=== PATIENT | female | born 1985 | race Caucasian/White ===

== ENCOUNTER 2017-07-21 11:53 | Day surgery (SDC) | payer OTHER ==
[~2017-07-21] VITALS: Ht 160 cm; Wt 103.4 kg
[~2017-07-21 11:53] MED LIST: OMEP40CA2 PO
[2017-07-21] MEDS ORDERED: NS 1,000 ML IV ONE (12:00)
[2017-07-21] MEDS ORDERED: PROPOFOL 200 MG/20 ML VIAL As Ordered ONE (14:12)
--- NOTE | 2017-07-21 14:23 | ROOR ---
Patient Name: Naida Medina Procedure Date: 07/21/2017 2:12 PM Date of : 1985 Age: 31 Room: [facility] Gender: Female Note Status: Finalized Procedure: Upper GI endoscopy Indications: Heartburn, Abnormal UGI series Providers: Robin RUBALCAVA MD Referring MD: KEYANNA VALENCIA Requesting Provider: Medicines: Monitored Anesthesia Care Complications: No immediate complications. Procedure: Pre-Anesthesia Assessment: - The heart rate, respiratory rate, oxygen saturations, blood pressure, adequacy of pulmonary ventilation, and response to care were monitored throughout the procedure. The Endoscope was introduced through the mouth, and advanced to the second part of duodenum. The upper GI endoscopy was accomplished without difficulty. The patient tolerated the procedure well. Findings: The examined esophagus was normal. Three 4 mm sessile fundic gland polyps with no stigmata of recent bleeding were found in the gastric fundus and in the gastric body. The polyp was removed with a cold snare. Resection and retrieval were complete. Very small (insignificant) Hiatal Hernia. The exam was otherwise without abnormality. Impression: - Normal esophagus. - Three fundic gland polyps. Resected and retrieved. - Very small (insignificant) Hiatal Hernia. - The examination was otherwise normal. Recommendation: - Observe patient's clinical course. - Telephone endoscopist for pathology results in 2 weeks. - Follow an antireflux regimen. Robin Rubalcava MD Robin RUBALCAVA MD 07/21/2017 2:22:48 PM This report has been signed electronically. Number of Addenda: 0 Note Initiated On: 07/21/2017 2:12 PM Estimated Blood Loss: Estimated blood loss: none.
[2017-07-21 14:46] VITALS: BP 120/83
== END 2017-07-21 14:47 | disposition home or self-care (01) ==
LOC: M OPP 11:53
PROVIDERS: ATTEND Internal Medicine Gastroenterology
DX: R93.3 Abnormal findings on diagnostic imaging of other parts of digestive tract (principal); R12 Heartburn; K31.7 Polyp of stomach and duodenum; K44.9 Diaphragmatic hernia without obstruction or gangrene; K21.9 Gastro-esophageal reflux disease without esophagitis; J45.909 Unspecified asthma, uncomplicated; Z79.899 Other long term (current) drug therapy; Z80.49 Family history of malignant neoplasm of other genital organs